=== PATIENT | female | born 1995 | race Caucasian/White ===

== ENCOUNTER → 2021-09-10 | Outpatient (REF) | payer MEDICAID | LOC: M LAB REF 12:16 | PROVIDERS: ATTEND Obstetrics & Gynecology | DX: Z34.81 Encounter for supervision of other normal pregnancy, first trimester (principal); Z3A.00 Weeks of gestation of pregnancy not specified ==

== ENCOUNTER → 2021-11-04 | Outpatient (CLI) | payer MEDICAID, OTHER | LOC: M WHC 08:36 | PROVIDERS: ATTEND Specialist | DX: Z34.82 Encounter for supervision of other normal pregnancy, second trimester (principal); Z3A.24 24 weeks gestation of pregnancy ==

== ENCOUNTER → 2021-12-03 | Outpatient (CLI) | payer OTHER | LOC: M WHC 08:23 | PROVIDERS: ATTEND Specialist | DX: Z34.02 Encounter for supervision of normal first pregnancy, second trimester (principal); Z3A.20 20 weeks gestation of pregnancy ==

== ENCOUNTER → 2021-12-31 | Outpatient (CLI) | payer OTHER ==
[2021-12-31 13:36] LABS: HEMATOCRIT 34.2 % (36.0-47.0); HEMOGLOBIN 11.6 g/dl (12.0-15.5); MEAN CORPUSCULAR HEMOGLOBIN 32.2 pg (27.0-33.0); MEAN CORPUSCULAR HGB CONC 33.9 g/dl (32.0-36.5); PLATELET COUNT, AUTOMATED 196 10^3/uL (150-450); WHITE BLOOD COUNT 10.1 10^3/uL (4.0-10.0)
[2021-12-31 16:29] LABS: GC DNA AMPLIFICATION NEGATIVE (NEGATIVE)
== END ==
LOC: M PLALAB 10:40
PROVIDERS: ATTEND Specialist
DX: Z34.02 Encounter for supervision of normal first pregnancy, second trimester (principal); Z3A.00 Weeks of gestation of pregnancy not specified

== ENCOUNTER → 2022-02-01 | Outpatient (REF) | payer OTHER | LOC: M SFHCWAGY 12:44 | PROVIDERS: ATTEND Specialist | DX: Z34.83 Encounter for supervision of other normal pregnancy, third trimester (principal) ==

== ENCOUNTER 2022-02-20 10:34 | Outpatient (CLI) | payer OTHER ==
[~2022-02-20] VITALS: Ht 170.2 cm; Wt 84.9 kg
[2022-02-20 11:06] VITALS: BP 130/63
[2022-02-20] MEDS ORDERED: LAMO200T3 PO (11:11)
[2022-02-20] MEDS ORDERED: PRENTAB9 PO (11:11)
[2022-02-20] MEDS ORDERED: HOME MED LIST COMPLETE! XX SCH (11:50)
== END 2022-02-20 12:20 | disposition home or self-care (01) ==
LOC: M LDO 10:34
PROVIDERS: ATTEND Obstetrics & Gynecology
DX: O36.8130 Decreased fetal movements, third trimester, not applicable or unspecified (principal); O60.03 Preterm labor without delivery, third trimester; Z3A.40 40 weeks gestation of pregnancy

== ENCOUNTER 2022-02-24 08:54 | Inpatient (IN) | payer OTHER ==
[2022-02-24] VITALS (10 sets, daily range): BP systolic 100–147; BP diastolic 57–90
[~2022-02-24] VITALS: Ht 170.2 cm; Wt 84.4 kg
[~2022-02-24 08:54] MED LIST: LAMO200T3 PO; PRENTAB9 PO
[2022-02-24] MEDS ORDERED: HOME MED LIST COMPLETE! XX SCH (09:10)
[2022-02-24 10:11] LABS: HEMATOCRIT 33.4 % (36.0-47.0); HEMOGLOBIN 11.4 g/dl (12.0-15.5); MEAN CORPUSCULAR HEMOGLOBIN 32.5 pg (27.0-33.0); MEAN CORPUSCULAR HGB CONC 34.1 g/dl (32.0-36.5); MEAN CORPUSCULAR VOLUME 95.2 fl (80.0-96.0); PLATELET COUNT, AUTOMATED 138 10^3/uL (150-450); RED BLOOD COUNT 3.51 10^6/uL (4.00-5.40); WHITE BLOOD COUNT 9.1 10^3/uL (4.0-10.0)
[2022-02-24] MEDS ORDERED: METHYLERGONOVINE MALEATE 0.2 MG/ML VIAL (J2210) IM PRN (10:40)
[2022-02-24] MEDS ORDERED: OXYTOCIN INJ 10 UNITS/ML VIAL (J2590) IM PRN (10:40)
[2022-02-24] MEDS ORDERED: CARBOPROST TROMETHAMINE 250 MCG/ML AMP IM PRN (10:40)
[2022-02-24] MEDS ORDERED: OXYTOCIN DRIP 30 UNITS in IV 1 EA IV PRN ×4 (10:40)
[2022-02-24] MEDS ORDERED: LIDOCAINE 1% MDV 20ML VIAL INFIL PRN (10:40)
[2022-02-24] MEDS ORDERED: TRANEXAMIC ACID INJection 1,000 MG in NS 100 ML IV PRN (10:40)
[2022-02-24] MEDS: miSOPROStol 50MCG 1/2 TABLET PO SCH ×3 (13:23→21:31)
[2022-02-24] MEDS: lamoTRIgine 100MG TAB PO SCH (22:47)
[2022-02-24] MEDS ORDERED: OXYTOCIN DRIP 30 UNITS in IV 1 EA IV SCH (23:55)
[2022-02-25] VITALS (50 sets, daily range): BP systolic 98–159; BP diastolic 51–87
[2022-02-25] MEDS: LR 1,000 ML IV SCH ×2 (00:08→01:28)
[2022-02-25] MEDS ORDERED: LR 500 ML IV PRN ×2 (00:30→00:35)
[2022-02-25] MEDS ORDERED: diphenhydrAMINE 50MG/ML VIAL (J1200) IV PRN ×2 (00:30→00:35)
[2022-02-25] MEDS ORDERED: ONDANSETRON 4MG 2ML VIAL IV PRN ×2 (00:30→00:35)
[2022-02-25] MEDS ORDERED: EPIDURAL/PCA KEYS XX PRN ×2 (00:30→00:35)
[2022-02-25] MEDS ORDERED: NALOXONE INJ 0.4MG/1ML VIAL (J2310 PER 1MG) IV PRN ×2 (00:30→00:35)
[2022-02-25] MEDS ORDERED: FENTANYL 2MCG/ML ROPIVACAINE 0.2% IN 0.9% NACL 100ML IVBAG As Ordered ONE (00:32)
[2022-02-25] MEDS ORDERED: FENTANYL/ROPIVACAINE/NACL BAG 100 ML EPIDURAL SCH (00:35)
[2022-02-25] MEDS ORDERED: ePHEDrine SULFATE 25 MG/5 ML(5MG/ML) SYRINGE IVP PRN (00:35)
[2022-02-25] MEDS: ePHEDrine SULFATE 25 MG/5 ML(5MG/ML) SYRINGE IVP PRN ×3 (01:28→02:29)
[2022-02-25] MEDS ORDERED: METHYLERGONOVINE MALEATE 0.2 MG TAB PO PRN (06:00)
[2022-02-25] MEDS ORDERED: ACETAMINOPHEN TAB 650MG DOSE (2X325MG) PO PRN (06:00)
[2022-02-25] MEDS ORDERED: DIBUCAINE 1% OINTMENT 30GM TOP PRN (06:00)
[2022-02-25] MEDS ORDERED: DOCUSATE SODIUM 100MG CAPSULE PO PRN (06:00)
[2022-02-25] MEDS ORDERED: RHOGAM 300 MCG (1500 IU) INJ (J2790) IM SCH (06:00)
[2022-02-25] MEDS ORDERED: IBUPROFEN 600MG TAB PO PRN (06:00)
[2022-02-25] MEDS: lamoTRIgine 100MG TAB PO SCH ×2 (08:48→20:49)
[2022-02-25] MEDS: PRENATAL VITAMINS CHEWABLE TABLET PO SCH (08:48)
[2022-02-25] MEDS: IBUPROFEN 800 MG TAB PO PRN (14:43)
[2022-02-25] MEDS: ACETAMINOPHEN 500 MG TAB PO PRN (21:28)
[2022-02-26] MEDS: IBUPROFEN 800 MG TAB PO PRN ×2 (01:50→10:01)
[2022-02-26] MEDS: ACETAMINOPHEN 500 MG TAB PO PRN (03:51)
[2022-02-26 06:00] VITALS: BP 115/59
[2022-02-26] MEDS: lamoTRIgine 100MG TAB PO SCH (08:34)
[2022-02-26] MEDS: PRENATAL VITAMINS CHEWABLE TABLET PO SCH (08:34)
[2022-02-27] MEDS ORDERED: MEASLES,MUMPS,RUBELLA VACCINE INJ (MMR-II) (90707) SC.IMMUN ONE (09:00)
== END 2022-02-26 17:20 | disposition home or self-care (01) | DRG 560 ==
LOC: M LDI 08:54 → M OBS 02-25 07:49
PROVIDERS: ADMIT Advanced Practice Midwife; ATTEND Advanced Practice Midwife
PROC: 3E033VJ Introduction of Other Hormone into Peripheral Vein, Percutaneous Approach (ICD-10-PCS; 2022-02-24)
PROC: 3E0DXGC Introduction of Other Therapeutic Substance into Mouth and Pharynx, External Approach (ICD-10-PCS; 2022-02-24)
PROC: 10E0XZZ Delivery of Products of Conception, External Approach (ICD-10-PCS; principal; 2022-02-25)
PROC: 0HQ9XZZ Repair Perineum Skin, External Approach (ICD-10-PCS; 2022-02-25)
DX: O48.0 Post-term pregnancy (principal); O41.03X0 Oligohydramnios, third trimester, not applicable or unspecified; Z37.0 Single live birth; Z3A.40 40 weeks gestation of pregnancy; O70.0 First degree perineal laceration during delivery

== ENCOUNTER → 2023-10-31 | Outpatient (REF) | payer MEDICAID, OTHER ==
[2023-10-31 14:40] LABS: BASO % 0.5 % (0.0-1.0); EOS # 0.2 10^3/uL (0.0-0.5); EOS % 3.2 % (0.0-3.0); HEMATOCRIT 41.1 % (36.0-47.0); HEMOGLOBIN 14.2 g/dl (12.0-15.5); LYMPH # 2.1 10^3/uL (1.5-5.0); LYMPH % 35.6 % (24.0-44.0); MEAN CORPUSCULAR HEMOGLOBIN 31.8 pg (27.0-33.0); MEAN CORPUSCULAR HGB CONC 34.5 g/dl (32.0-36.5); MEAN CORPUSCULAR VOLUME 91.9 fl (80.0-96.0); MONO # 0.4 10^3/uL (0.0-0.8); MONO % 7.4 % (2.0-8.0); NEUTROPHILS # 3.1 10^3/uL (1.5-8.5); NEUTROPHILS % 52.3 % (36.0-66.0); PLATELET COUNT, AUTOMATED 208 10^3/uL (150-450); RED BLOOD COUNT 4.47 10^6/uL (4.00-5.40)
[2023-10-31 15:01] LABS: HEMOGLOBIN A1c 5.1 % (4.0-6.0)
[2023-10-31 15:12] LABS: BLOOD UREA NITROGEN 12 MG/DL (9-23); CALCIUM LEVEL 8.2 MG/DL (8.5-10.1); CARBON DIOXIDE LEVEL 27 MMOL/L (20-31); CHLORIDE LEVEL 106 MMOL/L (98-107); CHOLESTEROL LEVEL 132 MG/DL (<200); CHOLESTEROL RISK RATIO 3.98 (<5); CREATININE FOR GFR 0.78 MG/DL (0.55-1.30); GLOMERULAR FILTRATION RATE > 60.0 (>60); GLUCOSE, FASTING 96 MG/DL (60-100); HDL CHOLESTEROL 33.1 MG/DL (>40); LDL CHOLESTEROL 80.5 MG/DL (<100); MAGNESIUM LEVEL 1.9 MG/DL (1.8-2.4); NON-HDL-C 98.9 MG/DL; POTASSIUM SERUM 4.3 MMOL/L (3.5-5.1); SODIUM LEVEL 136 MMOL/L (136-145); TRIGLYCERIDES LEVEL 92 MG/DL (<150)
== END ==
LOC: M LAB REF 12:39
PROVIDERS: ATTEND Nurse Practitioner Family
DX: G40.802 Other epilepsy, not intractable, without status epilepticus (principal); R53.83 Other fatigue; Z11.9 Encounter for screening for infectious and parasitic diseases, unspecified; Z13.6 Encounter for screening for cardiovascular disorders; G43.909 Migraine, unspecified, not intractable, without status migrainosus

== ENCOUNTER → 2024-02-16 | Outpatient (REF) | LOC: M EMP 13:59 | PROVIDERS: ATTEND Family Medicine | DX: Z11.52 Encounter for screening for COVID-19 (principal) ==

== ENCOUNTER → 2024-04-03 | Outpatient (REF) | payer OTHER, MEDICAID ==
[2024-04-04 15:08] LABS: PERCENT SATURATION 46.7 % (13.2-45.0)
[2024-04-04 15:09] LABS: FERRITIN 33.8 NG/ML (7.3-270.7)
== END ==
LOC: M LAB REF 12:36
PROVIDERS: ATTEND Nurse Practitioner Family
DX: R63.8 Other symptoms and signs concerning food and fluid intake (principal)

== ENCOUNTER → 2024-05-07 | Outpatient (CLI) | payer OTHER | LOC: M RAD 16:25 | PROVIDERS: ATTEND Physician Assistant Surgical | DX: S62.174D Nondisplaced fracture of trapezium [larger multangular], right wrist, subsequent encounter for fracture with routine healing (principal) ==

== ENCOUNTER → 2024-05-15 | Outpatient (REF) | payer OTHER | LOC: M SFHCWAGY 13:45 | PROVIDERS: ATTEND Advanced Practice Midwife | DX: Z12.4 Encounter for screening for malignant neoplasm of cervix (principal) ==

== ENCOUNTER → 2024-11-12 | Outpatient (CLI) | payer OTHER | LOC: M WHC 13:52 | PROVIDERS: ATTEND Advanced Practice Midwife | DX: R10.2 Pelvic and perineal pain (principal) ==

== ENCOUNTER → 2025-07-03 | Outpatient (CLI) | payer OTHER | LOC: M LAB 12:41 | PROVIDERS: ATTEND Nurse Practitioner Family | DX: G40.909 Epilepsy, unspecified, not intractable, without status epilepticus (principal) ==